=== PATIENT | male | born 1950 | race Caucasian/White ===

== ENCOUNTER 2019-12-17 08:41 | Inpatient (IN) | payer MEDICARE ==
[2019-12-17] VITALS (10 sets, daily range): BP systolic 144–172; BP diastolic 91–110
[~2019-12-17] VITALS: Ht 185.4 cm; Wt 112.6 kg
--- NOTE | ~2019-12-17 | PROC ---
[address] [address] PROCEDURE REPORT Name: JESUS ANGELO Room: [address] IN M.R.#: [id number] Admission: 12/17/19 Attend Phys: Mychal Dinh MD Discharge: 12/19/19 Date of : 50 Report #: [id number] THIS REPORT FOR: //name// cc: Josh Elmore DO Josh Elmore DO ~ THIS REPORT FOR: //name// For GI report, please see the Provation report in Perceptive 7 content. By: [id number] Records Staff DARREL /CHESTER
[2019-12-17] MEDS ORDERED: HYDROCHLOROTHIA25 M2 PO (08:58)
[2019-12-17] MEDS ORDERED: COZAAR 25 MG TA25 M1 PO (08:58)
[2019-12-17] MEDS ORDERED: OMEPRAZOLE 20 M20 M1 PO (08:59)
[2019-12-17 09:47] LABS: ABSOLUTE EOSINOPHILS 0.1 thou/uL (0.0-0.7); ABSOLUTE LYMPHOCYTES 1.6 thou/uL (0.8-5.3); ABSOLUTE MONOCYTES 0.7 thou/uL (0.0-1.2); ABSOLUTE NEUTROPHILS 6.9 thou/uL (1.6-8.1); BASOPHILS 0.3 %; EOSINOPHILS 0.5 %; HEMATOCRIT 44.3 % (42.0-52.0); HEMOGLOBIN 15.7 gm/dL (14.0-18.0); LYMPHOCYTES 17.1 %; MCH 33.5 pg (26.0-34.0); MCHC 35.4 g/dL (28.0-37.0); MCV 94.6 fL (80.0-100.0); MONOCYTES 7.7 %; MPV 7.9 fl. (7.2-11.1); NUCLEATED RBCS 0 /100WBC; PLATELET COUNT* 215 thou/uL (150-400); POLYS 74.4 %; RBC 4.69 mil/uL (4.50-6.00); RDW-CV 12.9 % (10.5-14.5); WBC 9.3 thou/uL (4.0-11.0)
[2019-12-17 09:58] LABS: CALCIUM 9.4 mg/dL (8.5-10.1); CREATININE 1.1 mg/dL (0.6-1.3); POTASSIUM 3.2 mmol/L (3.5-5.1)
[2019-12-17 09:59] LABS: APTT 25.2 Seconds (25.0-31.3); PROTIME 10.7 Seconds (9.20-11.50)
[2019-12-17 10:02] LABS: ALBUMIN 4.2 g/dL (3.4-5.0); TOTAL BILIRUBIN 0.8 mg/dL (<0.1-1.0); TOTAL PROTEIN 7.9 g/dL (6.4-8.2)
--- NOTE | 2019-12-17 10:54 | NUR ---
PT STATES HIS DAUGHTER IS A [employer] E[employer]OM[employer], SHE TESTED POSITIVE FOR COVID 5 WEEKS AGO, PT REPORTS HE VISITER HER 1 WEEK AGO AND SHE TESTED NEGATIVE 3 DAYS AGO
--- NOTE | 2019-12-17 11:39 | NUR ---
DANIE NOTIFIED UPON PT RETURN FROM CT. PT CONNECTED TO MONITOR
--- NOTE | 2019-12-17 14:09 | NUR ---
Pts Trudi has been notified in the waiting room of pt progress.
--- NOTE | 2019-12-17 14:22 | NUR ---
Pt c/o severe nausea, at bedside, pt is having episode of hiccups that he states is a precurser to vomiting. Paged to Dr. Dinh placed.
--- NOTE | 2019-12-17 14:55 | NUR ---
Given compazine to pt to help with nausea.
--- NOTE | 2019-12-17 14:56 | NUR ---
urine obtained for tests.
--- NOTE | 2019-12-17 15:22 | 2DMMODE ---
[place] [address] 2 D/M-MODE ECHOCARDIOGRAM Name: PETEYJESUS Ayden Room: [place] [address] ADM IN [place]#: [id number] Admission: 12/17/19 Attend Phys: Mychal Dinh, Discharge: Date of : 50 Date of Service: 12/17/19 1520 Report #: [id number] THIS REPORT FOR: cc: Josh Elmore Adam J DO Liston, Michael J. MD [facility] ~ APPROVED REPORT Study performed: 12/17/2019 13:42:55 EXAM: Comprehensive 2D, Doppler, and color-flow Echocardiogram Patient Location: In-Patient Room #: er Status: routine BSA: 2.28 HR: 82 bpm BP: 149/96 mmHg Rhythm: NSR Other Information Study Quality: Good Indications Acute DE 2D Dimensions IVSd: 15.59 (7-11mm) LVOT Diam: 22.08 (18-24mm) LVDd: 44.06 mm PWd: 15.61 (7-11mm) LVDs: 34.40 (25-40mm) Aortic Root: 39.86 mm Volumes Left Atrial Volume (Systole) LA ESV Index: 19.00 mL/m2 Aortic Valve AoV Peak Grayson.: 1.11 m/s AO Peak Gr.: 4.89 mmHg LVOT Max P.89 mmHg AO Mean Gr.: 2.93 mmHg LVOT Mean P.46 mmHg LVOT Max V: 0.85 m/s AO V2 VTI: 15.76 cm LVOT Mean V: 0.56 m/s MIREILLE (VTI): 3.03 cm2 LVOT V1 VTI: 12.47 [place] [address] 2 D/M-MODE ECHOCARDIOGRAM Name: JESUS ANGELO Room: [place] [address] ADM IN .R.#: [id number] Admission: 12/17/19 Attend Phys: Mychal Dinh, Discharge: Date of : 50 Date of Service: 12/17/19 1520 Report #: [id number] TDI Medial E' Grayson.: 0.10 m/s Lateral E' Grayson.: 0.10 m/s Pulmonary Valve PV Peak Grayson.: 1.05 m/s PV Peak Gr.: 4.42 mmHg Left Ventricle The left ventricle is normal size. Left ventricular systolic dyssynergy is present consistent with underlying bundle branch block. There is normal left ventricular wall thickness. Left ventricular systolic function is normal. LVEF is 55-60%. Transmitral Doppler flow pattern suggests impaired LV relaxation. Right Ventricle The right ventricle is normal size. The right ventricular systolic function is normal. Atria The left atrium size is normal. The right atrium size is normal. Aortic Valve The aortic valve is normal in structure. No aortic regurgitation is present. There is no aortic valvular stenosis. Mitral Valve The mitral valve is normal in structure. There is no mitral valve regurgitation noted. No evidence of mitral valve stenosis. Tricuspid Valve The tricuspid valve is normal in structure. There is no tricuspid valve regurgitation noted. Pulmonic Valve The pulmonary valve is normal in structure. There is no pulmonic valvular regurgitation. Great Vessels The aortic root is normal in size. IVC is normal in size and collapses >50% with inspiration. Pericardium There is no pericardial effusion. <Conclusion> [place] [address] 2 D/M-MODE ECHOCARDIOGRAM Name: PETEY,JESUS Ayden Room: [address] IN .R.#: [id number] Admission: 12/17/19 Attend Phys: Mychal Dinh, Discharge: Date of : 50 Date of Service: 12/17/19 1520 Report #: [id number] The left ventricle is normal size. There is normal left ventricular wall thickness. Left ventricular systolic function is normal. LVEF is 55-60%. Transmitral Doppler flow pattern suggests impaired LV relaxation. Left ventricular systolic dyssynergy is present consistent with underlying bundle branch block. IVC is normal in size and collapses >50% with inspiration. <ELECTRONICALLY SIGNED> By: Anthony Waite MD, FACC 12/17/19 1520 1520 1520 Anthony Waite MD, FAC /INF
[2019-12-17 15:23] LABS: AMP/METHAMP Negative (Negative); BARBITURATES Negative (Negative); BENZODIAZEPINES Negative (Negative); COCAINE Negative (Negative); METHADONE Negative (Negative); OPIATES POSITIVE (Negative); PCP Negative (Negative); THC Negative (Negative)
--- NOTE | 2019-12-17 16:04 | EKG ---
[place] [address] ELECTROCARDIOGRAM REPORT Name: JESUS ANGELO Room: [address] ADM IN M.R.#: [id number] Admission: 12/17/19 Attend Phys: Mychal Dinh, Discharge: Date of : 50 Date of Service: 12/17/19 0918 Report #: [id number] THIS REPORT FOR: //name// [facility] ED Test Date: 2019-12-17 Test Time: 09:18:04 Pat Name: JESUS ANGELO Department: Room: [facility] Gender: M Ladle Patcher: MS : 1950 Requested By: Sabina Medina Order Number: [id number] MD: Lucas Estrada Measurements Intervals Canyon Rate: 88 P: 56 PA: 224 QRS: -55 QRSD: 177 T: 96 QT: 424 QTc: 513 Interpretive Statements Sinus rhythm Prolonged PA interval Left bundle branch block No previous ECG available for comparison Electronically Signed On 12-17-2019 16:02:38 CDT by Lucas Estrada [email or web address] <ELECTRONICALLY SIGNED> By: Lucas Estrada MD, [facility] 12/17/19 1602 7 7 Lucas Estrada MD, [facility] /EPI
--- NOTE | 2019-12-17 16:32 | NUR ---
ASSUMED PT CARE REPORT RECEIVED FROM NURSE. PT OS AOX4. ON RA, O2 SATURATION 95% ON RA. VSS. TRACING SR BBB 1ST AV BLOCK ON SATELLITE TV TECHNICIAN. PT COMPLAINS OF HICCOUGHS. DENIES CHEST PAIN. ELEVATED TROP. DR NOTIFIED. LUNGS ARE CLEAR. DENIES N/V AT THAT TIME. RIGHT GROIN SITE IS INTACT. IV FLUID INFUSING AT 75CC PER HOUR. HYDRATION PROMOTED. PT LYONG IN BED TRYING TO GET SOME REST. WILL CONTINUE TO MONITOR.
--- NOTE | 2019-12-17 17:06 | NUR ---
PT HAD AN EPISODE OF LARGE VOMIT DARK IN COLOR. ZOFRAN GIVEN. PROTONIX GIVEN ORDERED. K REPLACED.
--- NOTE | 2019-12-17 18:32 | CARD ---
[address] [address] CARDIAC CATH REPORT Name: JESUS ANGELO Room: [address] IN ..#: [id number] Admission: 12/17/19 Attend Phys: Mychal Dinh MD Discharge: Date of : 50 Report #: [id number] THIS REPORT FOR: //name// cc: Josh Elmore Adam J DO ~ APPROVED REPORT Study performed: 12/17/2019 11:47:21 Patient Details Patient Status: In-Patient Room #: The patient is a 69 year-old male Event Personnel Anthony Waite Rouge Mixer, Irma Pacheco RN Pilot Supervisor, Alphonso Bryant SURGICAL AIDES TEACHER Monitor, Kait Giordano RTR Scrub Procedures Performed Art Access - R femoral artery* Left Heart Cath w/or w/o Coronaries [id number] [facility] Indication Non-ST elevation myocardial infarction. Procedure Narrative The patient was brought urgently to the Cardiac Catheterization Laboratory and was prepped and draped in a sterile manner. The right groin was infiltrated with 1% Lidocaine subcutaneous anesthesia. A 6F Sheath sheath was inserted into the RFA. Coronary angiography was performed using coronary diagnostic catheters. The right coronary system was accessed and visualized with a 3DRC 6fr catheter. The left coronary system was accessed and visualized with a JL4 catheter. The left ventricle was accessed and visualized with a PIG catheter. Left ventricular/Aortic Valve gradient assessed via catheter pullback. Left ventriculogram was performed in 30 degree, , JALLOH projection. Pre-demployment femoral angiogram was performed . Closure device was deployed with a Fr 6F Mynx. The patient tolerated the procedure well and there were no complications associated with the procedure. There was no hematoma. Intraoperative Conscious Sedation Sedation start time: 1211 Case end Time: 1224 Fluoro Time: 2.8 minutes Dose: DAP 1004 cGycm2 73.9 [place] [address] CARDIAC CATH REPORT Name: JESUS ANGELO Room: [address] IN [facility].#: [id number] Admission: 12/17/19 Attend Phys: Mychal Dinh MD Discharge: Date of : 50 Report #: [id number] Contrast Type and Amount: Visipaque 110 ml Coronary Angiography The patient's coronary anatomy is right dominant. Diagnostic Cath Left Main Left main coronary artery is normal and trifurcates into an LAD, intermediate ramus and circumflex coronary artery. LAD Left anterior descending coronary artery has moderate 40% plaquing proximally. The mid and distal vessel are free of significant disease. Diagonal 1 The first diagonal branch is a moderate-sized vessel is mildly plaqued proximally. The remainder the vessel is free of significant disease. Diagonal 2 The second diagonal branch is a small vessel appears normal. Circumflex The circumflex is small in caliber and normal in its proximal mid and distal portions. OM1 A small obtuse marginal off the distal circumflex appears normal. Right Coronary The right coronary artery has a moderate 40% narrowing proximally. The mid and distal vessel appeared mildly ectatic without significant narrowing. R PDA A small PDA is free of significant disease. RPLV A moderate size posterior lateral LV branch has a discrete narrowing in its midportion it appears hazy, consistent with thrombus. Ramus A large intermediate ramus branch has marginal distribution and covers the entire lateral wall. The vessel is free of significant disease. Left Ventriculography The left ventricle is normal in size with normal contractility. The left ventricular ejection fraction is estimated to be 50-55%. Hemodynamics The aortic pressure is 136/78 mmHg with a mean of 98 mmHg. The left ventricular pressure is 148/6 mmHg with a mean of mmHg. The left ventricular end diastolic pressure is 12 mmHg. Conclusion 1. The culprit lesion appears to be in the mid posterior lateral LV branch off the right coronary artery. 2. 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 [address] CARDIAC CATH REPORT Name: JESUS ANGELO Room: [address] IN M.R.#: [id number] Admission: 12/17/19 Attend Phys: Mychal Dinh MD Discharge: Date of : 50 Report #: [id number] 3. Globally normal LV systolic function. 4. Normal left ventricular end-diastolic pressure. Recommendations 1. Continue medical management and aggressive risk factor modification. <ELECTRONICALLY SIGNED> By: Anthony Waite MD, FACC 12/17/191829 29 29Micmaral Waite MD, FACC /INF
--- NOTE | 2019-12-17 18:50 | NUR ---
this nurse assessed pt for n/v one hour after administering zofran. pt denies n.v.
[2019-12-18] VITALS (7 sets, daily range): BP systolic 133–150; BP diastolic 74–96
[2019-12-18 04:21] LABS: ABSOLUTE LYMPHOCYTES 1.3 thou/uL (0.8-5.3); ABSOLUTE MONOCYTES 0.9 thou/uL (0.0-1.2); ABSOLUTE NEUTROPHILS 10.4 thou/uL (1.6-8.1); BASOPHILS 0.1 %; HEMATOCRIT 41.9 % (42.0-52.0); HEMOGLOBIN 14.8 gm/dL (14.0-18.0); MCH 33.6 pg (26.0-34.0); MCHC 35.3 g/dL (28.0-37.0); MCV 95.3 fL (80.0-100.0); MONOCYTES 6.9 %; MPV 7.8 fl. (7.2-11.1); NUCLEATED RBCS 0 /100WBC; PLATELET COUNT* 191 thou/uL (150-400); RDW-CV 12.8 % (10.5-14.5); WBC 12.6 thou/uL (4.0-11.0)
[2019-12-18 04:50] LABS: ANION GAP 10 mmol/L (7-16); BUN 23 mg/dL (7-18); CALCIUM 8.8 mg/dL (8.5-10.1); CHLORIDE 102 mmol/L (98-107); CHOLESTEROL 222 mg/dL (<200); CO2 29 mmol/L (21-32); CREATININE 1.4 mg/dL (0.6-1.3); GLUCOSE 129 mg/dL (70-99); HDL CHOLESTEROL 50 mg/dL (>40); LDL CHOLESTEROL 141 mg/dL (<100); POTASSIUM 3.3 mmol/L (3.5-5.1); SODIUM 141 mmol/L (136-145); TC:HDL 4.4 Ratio (Not establshd); TRIGLYCERIDE 157 mg/dL (<150); VLDL 31 mg/dL (<40)
[2019-12-18 04:58] LABS: SERUM ASSESSMENT Clear
--- NOTE | 2019-12-18 07:34 | NUR ---
ASSUMED CARE OF PT AFTER REPORT AT 1930. PT A&OX4. VSS. PHYSICAL ASSESSMENT COMPLETED AND CHARTED. PT ON RA. PT TRACING SR/BBB ON TELE. PT UPADLIB TO RESTROOM. PT COMPLAINED OF NAUSEA, VOMITING, HICCUPS & REQUEST MED FOR SLEEP-DR MUNOZ MADE AWARE WITH NEW ORDERS. POST CATH SITE TO RIGHT GROIN CLEAN, DRY & INTACT. NO HEMATOMA OR BLEEDING NOTED. POTASSIUM 3.3. ELECTROLYTE PROTOCOL IN PLACE. PT DENIES ANY PAIN. CALL LIGHT WITHIN REACH.
[2019-12-18 08:50] LABS: DIRECT BILIRUBIN 0.2 mg/dL (<0.1-0.3); TOTAL BILIRUBIN 0.8 mg/dL (<0.1-1.0)
--- NOTE | 2019-12-18 09:45 | NUR ---
ASSUMED PT CARE REPORT RECEIVED FROM NURSE. PT IS OAX4. ON RA. O2 SATURATION IS 92%. PT COMPLAINS OF NAUSEA. REGLAN GIVEN. THIS NURSE CONTACTED GI AGAIN. MESSAGE LEFT. NO VOMITING THIS AM. IV FLUID INFUSING AT 100 PER HOUR. CLEAR LIQUID DIET. TRACING SINUS RYTHM ON VP INTEGRITY. CALL LIGHT WITHIN REACH. WILL CONTINUE TO MONITOR PT.
--- NOTE | 2019-12-18 13:48 | NUR ---
phenergan given . no vomiting
--- NOTE | 2019-12-18 14:38 | NUR ---
metoprolol given for increase heart rate an hour ago.heart now within normal range. consent for egd received for tomorrow. this nurse called sx scheduling to schedule the egd at 1100. phenergan given. iv fluid infusing at 100 per hour. will continue to monitor
--- NOTE | 2019-12-18 16:15 | NUR ---
Pt did not answer his room phone. Left VM for Pt's , will attempt to assess tomorrow.
[2019-12-19 00:03] VITALS: BP 143/91
[2019-12-19 02:07] LABS: GLYCOHEMOGLOBIN (HGB A1C) 5.7 % (4.8-5.6)
[2019-12-19 03:58] VITALS: BP 146/87
--- NOTE | 2019-12-19 05:00 | NUR ---
ASSESSMENTS COMPLETED AT BEDSIDE PLEASE REFER TO CHARTING, MEDICATIONS ADMINISTERED PER MAR. NO C/O PAIN OR DISCOMFORT NOTED, PT DID STATE IMPROVEMENT TO HIS N/V. EGD SCHEDULED FOR TODAY, MAINTAINING NPO STATUS. HOURLY ROUNDING COMPLETED FOR SAFETY, CALL LIGHT WITHIN REACH.
--- NOTE | 2019-12-19 07:10 | NUR ---
CHANGE OF SHIFT BEDSIDE REPORT GIVEN PATIENT SEEN AT BEDSIDE IN BED ASLEEP ASSUMED PATIENT CARE
[2019-12-19 07:30] VITALS: BP 136/91
[2019-12-19 11:24] LABS: CALCIUM 8.3 mg/dL (8.5-10.1); CREATININE 1.1 mg/dL (0.6-1.3); POTASSIUM 3.5 mmol/L (3.5-5.1)
--- NOTE | 2019-12-19 11:59 | NUR ---
CM spoke with Pt's via phone. Pt is A&O. Active and independent. No DME. No hx of HH or SNF. Possible dc to home today pending GI clearance. No needs.
--- NOTE | 2019-12-19 15:14 | CON ---
[address] [address] CONSULTATION Name: PETEY,JESUS Ayden Room: [address] IN ..#: [id number] Admission: 12/17/19 Attend Phys: Mychal Dinh MD Discharge: Date of : 50 Report #: [id number] THIS REPORT FOR: //name// cc: Josh Elmore DO Josh Elmore DO ~ THIS REPORT FOR: //name// CC: Josh Dinh DATE OF SERVICE: 12/18/2019 REASON FOR CONSULT: Persistent GERD, noncardiac chest pain, persistent nausea and vomiting. The patient also has had one episode of coffee-ground emesis. HISTORY OF PRESENT ILLNESS: This is a 69-year-old male with history of gastroesophageal reflux symptoms, who presented to hospital with nausea, vomiting, and chest pain. The patient underwent cardiac catheterization due to an elevated troponin, but was not stented. The patient reports that his chest pain and nausea started after eating pizza yesterday morning. He denies any dysphagia, but complains of persistent symptoms of GERD. PAST MEDICAL HISTORY: Significant for history of gastroesophageal reflux disease for which he takes omeprazole. The patient also has hypertension. ALLERGIES: No known drug allergy. MEDICATIONS: Please refer to MAR. SOCIAL HISTORY: The patient drinks a couple glasses of wine per day. He denies tobacco use. FAMILY HISTORY: Negative for GI malignancy. PHYSICAL EXAMINATION: VITAL SIGNS: Reveals blood pressure of 150/96, respirations 16, pulse 105, temperature is 98. LUNGS: Clear. CARDIOVASCULAR: Regular. ABDOMEN: Soft, nontender, nondistended. Bowel sounds are positive. LABORATORY DATA: Reveal sodium of 141, potassium 3.3, BUN is 23, creatinine 1.4, glucose is 129, AST 22, ALT 32, alkaline phosphatase 54. WBC is 12.6 with hemoglobin and hematocrit of 14 and 41.9 and platelet of 191. IMAGING: The patient had a CT of abdomen and pelvis [place] [address] CONSULTATION Name: JESUS ANGELO Room: [address] IN [facility].#: [id number] Admission: 12/17/19 Attend Phys: Mychal Dinh MD Discharge: Date of : 50 Report #: [id number] nonspecific fluid filled distention of the stomach with normal caliber duodenum, and colon. There was no evidence of ascites or any mass noted. Abdominal ultrasound performed, which showed normal appearing gallbladder and mild hepatic steatosis. ASSESSMENT AND PLAN: The patient with persistent gastroesophageal reflux disease, chest pain and gastric distention per CT. This may be significant for gastroduodenal ulcer or causing partial obstruction of the gastric outlet versus gastroparesis. The patient is on PPI therapy. We will schedule him for upper endoscopy tomorrow and make further recommendation. Meanwhile, we will add a motility agent Reglan to help with gastric emptying and also put the patient on Phenergan 25 mg IV every 6 hours p.r.n. for nausea. <ELECTRONICALLY SIGNED> By: Delfino Mcgovern MD 12/19/19 1514 1255 [id number] Mcgovern MD /nt
[2019-12-19 16:27] VITALS: BP 136/91
[2019-12-19] MEDS ORDERED: PROTONIX40 M1 PO (18:09)
[2019-12-19] MEDS ORDERED: PLAVIX 75 MG TA75 MG PO (18:10)
[2019-12-19] MEDS ORDERED: LOPRESSOR50 MG PO (18:12)
--- NOTE | 2019-12-19 18:20 | NUR ---
PATIENT DISCHARGED TO HOME MET DISCHARGE CRITERIA, TOLERATED DIET ALL DISCHARGE INSTRUCTIONS GIVEN, ACKNOWLEDGED, SIGNED PAPERWORK GIVEN IV AND HEART MONITOR REMOVED PERSOANL BELONGINGS RETURNED PATIENT ASSISTED OUT VIA GOOD CONDITION TO WAITING CAR
== END 2019-12-19 18:23 | disposition home or self-care (01) | DRG 280 ==
LOC: M.ERS 08:41 → M.2W 11:44 → M.TBA-ER 11:44 → M.2W 15:26
PROVIDERS: Internal Medicine Cardiovascular Disease; Personal Emergency Response Attendant; ADMIT Internal Medicine
PROC: B211YZZ Fluoroscopy of Multiple Coronary Arteries using Other Contrast (ICD-10-PCS; principal; 2019-12-17)
PROC: B215YZZ Fluoroscopy of Left Heart using Other Contrast (ICD-10-PCS; principal; 2019-12-17)
PROC: 4A023N7 Measurement of Cardiac Sampling and Pressure, Left Heart, Percutaneous Approach (ICD-10-PCS; principal; 2019-12-17)
PROC: 0D968ZX Drainage of Stomach, Via Natural or Artificial Opening Endoscopic, Diagnostic (ICD-10-PCS; 2019-12-19)
PROC: 0DC78ZZ Extirpation of Matter from Stomach, Pylorus, Via Natural or Artificial Opening Endoscopic (ICD-10-PCS; 2019-12-19)
DX: I21.4 Non-ST elevation (NSTEMI) myocardial infarction (principal); N17.0 Acute kidney failure with tubular necrosis; K29.70 Gastritis, unspecified, without bleeding; I44.7 Left bundle-branch block, unspecified; E87.6 Hypokalemia; I10 Essential (primary) hypertension; Z87.891 Personal history of nicotine dependence; Z82.49 Family history of ischemic heart disease and other diseases of the circulatory system; Z79.82 Long term (current) use of aspirin; Z79.899 Other long term (current) drug therapy; K21.0 Gastro-esophageal reflux disease with esophagitis; T18.2XXA Foreign body in stomach, initial encounter; X58.XXXA Exposure to other specified factors, initial encounter; Y93.89 Activity, other specified; Y92.89 Other specified places as the place of occurrence of the external cause; Y99.8 Other external cause status

== ENCOUNTER → 2020-02-17 | Outpatient (CLI) | payer MEDICARE, OTHER ==
[~2020-02-17] MED LIST: COZAAR 25 MG TA25 M1 PO; HYDROCHLOROTHIA25 M2 PO; LOPRESSOR50 MG PO; OMEPRAZOLE 20 M20 M1 PO; PLAVIX 75 MG TA75 MG PO; PROTONIX40 M1 PO
== END ==
LOC: M.LAB 09:12
PROVIDERS: ATTEND Internal Medicine Gastroenterology
DX: Z01.812 Encounter for preprocedural laboratory examination (principal); Z11.59 Encounter for screening for other viral diseases

== ENCOUNTER → 2020-09-04 | Outpatient (CLI) | payer MEDICARE, OTHER ==
--- NOTE | 2020-09-13 19:06 | SLEEP ---
[address] [address] SLEEP STUDY REPORT Name: JESUS ANGELO Room: [facility].#: [id number] Admission: 09/04/20 Attend Phys: Josh Elmore DO Discharge: Date of : 50 Report #: [id number] THIS REPORT FOR: cc: Josh Elmore Adam J DO ~ Pervez, Adeel MD This study has been reviewed in its entirety by a board certified sleep specialist DATE OF SERVICE: 09/04/2020 SLEEP STUDY INDICATION FOR SLEEP STUDY: Hypertension with daytime sleepiness. INTERPRETATION: Total duration of the study is 434 minutes. During this time duration, the patient was found to be asleep for 322 minutes, this is with a sleep efficiency of 74.2%. Sleep onset initially occurred 8 minutes after lying down in bed and REM onset was 90 minutes after sleep onset, N1 sleep duration was 11%, N2 duration 36%, N3 duration 22%, and REM duration is 30%. This is a split night sleep study. During the initial part of the sleep study, the patient was not on positive airway pressure therapy for 136 minutes, this included 112 minutes of sleep time, which in turn included 31 minutes of REM sleep. During this time duration, we did record multiple sleep related respiratory events. These included, 1 central apnea, 11 obstructive apneas in addition to 13 hypopneas and 10 respiratory effort related arousals with an overall apnea-hypopnea index of 13.5 with respiratory disturbance index was 18.8. Body position data indicates the patient was not observed in the supine position during the diagnostic portion of the sleep study. Mean heart rate at this time was 71 with a periodic limb movement index elevated to 39. Most limb movements, however, were not associated with arousals. Periodic limb movement index with arousals was 7.0. Overall, arousal index was, however, elevated to 34.4 and there is some sleep fragmentation observed. We also did record multiple desaturations during this time. O2 saturation was mostly maintained at or above 90% only dropping below 90% for 0.6 minutes. There are no desaturations below 88%. The patient was subsequently placed on positive airway pressure therapy and was observed in positive airway pressure therapy for 271 minutes. This included 211 minutes of sleep time, which in turn included 67 minutes of REM sleep. The patient's mean heart rate was now 70. Periodic limb movement index improved to [facility] [address] [place] [address] SLEEP STUDY REPORT Name: PETEYJESUSPITO MCCALL Room: [facility]#: [id number] Admission: 09/04/20 Attend Phys: Josh Elmore DO Discharge: Date of : 50 Report #: [id number] 3.7, which is normal. Arousal index improved to 22.5. Review of the CPAP titration indicates the patient was titrated beginning with a CPAP pressure of 5 cm of water, gradually increasing it to 10 cm of water. The patient did have a favorable response to CPAP therapy. With the administration of a CPAP of 10 cm of water, there is marked improvement noted in the patient's sleep-disordered respirations with the apnea-hypopnea index improving to 1.6 and O2 saturation being maintained at or above 93%. The patient was observed in both sustained REM as well as non-REM sleep on the final CPAP pressure. REM supine sleep, however, was not observed. IMPRESSION: 1. Obstructive sleep apnea with an apnea-hypopnea index of 13.5. Supine sleep was not observed during the diagnostic portion of the sleep study. 2. There is marked improvement noted in the patient's obstructive sleep apnea with the administration of a CPAP of 10 cm of water. RECOMMENDATIONS: Recommend a CPAP of 10 cm of water with heated humidity and mask per patient preference while asleep. During the sleep study, a ResMed AirFit full face mask, size large with a C-Flex setting of 3 was used. If clinically appropriate, then consider some weight loss. Recommend avoiding driving or other activities requiring vigilance if drowsy. This entire sleep study was reviewed by board certified sleep physician. <ELECTRONICALLY SIGNED> By: Mike Mckenzie MD 09/13/20 1906 1818 [id number] Mckenzie MD /nt
== END ==
LOC: M.SLEEPLAB 20:00
PROVIDERS: ATTEND Family Medicine
DX: G47.33 Obstructive sleep apnea (adult) (pediatric) (principal); R06.83 Snoring; R40.0 Somnolence

== ENCOUNTER → 2021-09-01 | Outpatient (CLI) | payer MEDICARE, OTHER | LOC: M.ULTRA 07:12 | PROVIDERS: ATTEND Nurse Practitioner Family | DX: Z13.6 Encounter for screening for cardiovascular disorders (principal); I70.8 Atherosclerosis of other arteries; Z72.0 Tobacco use ==

== ENCOUNTER → 2021-09-29 | Outpatient (CLI) | payer MEDICARE, OTHER | LOC: M.LAB 06:10 | PROVIDERS: ATTEND Internal Medicine Gastroenterology | DX: Z01.812 Encounter for preprocedural laboratory examination (principal); Z20.822 Contact with and (suspected) exposure to COVID-19 ==